=== PATIENT | female | born 1980 | race Caucasian/White ===

== ENCOUNTER 2021-03-18 08:59 | Emergency (ER) | payer MEDICAID, OTHER ==
[2021-03-18] MEDS ORDERED: Augmentin 875-125 Tablet PO ONE (09:51)
--- NOTE | 2021-03-18 09:51 | ERPHSYRPT ---
- History of Present Illness Time Seen by Provider: 03/18/21 09:20 Source: patient Exam Limitations: no limitations Patient Subjective Stated Complaint: dog bite to forehead last night Triage Nursing Assessment: pt to ED c/o dog bite last night. noted 2 cm laceration to R eyebrow that is not currently bleeding. pt reports she has cleaned with peroxide multiple times and currently is bandaged with abx ointment. rates 7/10 pain at rest. unknown tetanus status. Physician History: Patient is a 40-year-old female presents to our ED for evaluation of a dog bite to the right eyebrow area. Patient states she was visiting a neighbor whose dog bit her. The dog is domestic. Patient states she is not sure the dog's vaccination status. Incident occurred last night approximately 10 PM. Patient did not seek medical attention at that time for unclear reasons. Patient is otherwise healthy. Tetanus is not up-to-date. Patient treated the injured area with irrigation and application of antibiotic ointment. Patient otherwise feels well. Pain is well controlled. No headache. No blurred vision. No nausea or vomiting. No other injuries reported. Patient voices no other complaints concerns at this time. Timing/Duration: yesterday Severity: moderate Modifying Factors: Improves With: nothing Associated Symptoms: denies symptoms Allergies/Adverse Reactions: No Known Drug Allergies Allergy (Unverified 03/18/21 09:24) Home Medications: Venlafaxine HCl ER 75 mg [Effexor XR 75 MG] 150 mg PO DAILY 03/18/21 [History] clonazePAM [Clonazepam] 0.5 mg PO DAILY PRN PRN 03/18/21 [History] Hx Tetanus, Diphtheria Vaccination/Date Given: No (unknown) Hx Influenza Vaccination/Date Given: No Hx Pneumococcal Vaccination/Date Given: No Immunizations Up to Date: No Travel Risk - International Travel Have you traveled outside of the country in past 3 weeks: No - Coronavirus Screening Are you exhibiting any of the following symptoms?: No Close contact with a COVID-19 positive Pt in past 14-21 Days: No - Vaccine Status Have you recieved a Covid-19 vaccination: Yes 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[employer] - Vaccination Dates Date of 2cond Vaccination (if applicable): january - Review of Systems Constitutional: No Symptoms, No Fever, No Chills Eyes: No Symptoms Ears, Nose, & Throat: No Symptoms Respiratory: No Symptoms, No Cough, No Dyspnea Cardiac: No Symptoms, No Chest Pain, No Edema, No Syncope Abdominal/Gastrointestinal: No Symptoms, No Abdominal Pain, No Nausea, No Vomiting, No Diarrhea Genitourinary Symptoms: No Symptoms, No Dysuria Musculoskeletal: No Symptoms, No Back Pain, No Neck Pain Skin: No Symptoms, No Rash Neurological: No Symptoms, No Dizziness, No Focal Weakness, No Sensory Changes Psychological: No Symptoms Endocrine: No Symptoms Hematologic/Lymphatic: No Symptoms Immunological/Allergic: No Symptoms All Other Systems: Reviewed and Negative - Past Medical History Pertinent Past Medical History: Yes Psycho-Social History: Depression - Past Surgical History Past Surgical History: No - Social History Smoking Status: Light tobacco smoker Exposure to second hand smoke: No Drug Use: none Patient Lives Alone: No - Female History Hx Last Menstrual Period: 3 weeks ago Hx Now: No - Nursing Vital Signs Nursing Vital Signs: Initial Vital Signs Temperature 98.7 F 03/18/21 09:16 Pulse Rate 91 H 03/18/21 09:16 Respiratory Rate 16 03/18/21 09:16 Blood Pressure 176/112 03/18/21 09:16 O2 Sat by Pulse Oximetry 97 03/18/21 09:16 Pain Scale Pain Intensity 7 - Physical Exam General Appearance: no apparent distress, alert Eye Exam: PERRL/EOMI, eyes nml inspection, other (Dog bite laceration over the right eyebrow that is not amendable to laceration repair. No involvement of the adjacent globe.) Ears, Nose, Throat Exam: normal ENT inspection, TMs normal, pharynx normal, moist mucous membranes, other (There is a 3 cm well approximated laceration just above the right eyebrow with a 4 mm x 2 mm in depth volume of soft tissue traumatically avulsed secondary to a dog bite. The wound is 12 hours old.) Neck Exam: normal inspection, non-tender, supple, full range of motion Respiratory Exam: normal breath sounds, lungs clear, No respiratory distress Cardiovascular Exam: regular rate/rhythm, normal heart sounds, normal peripheral pulses Gastrointestinal/Abdomen Exam: soft, normal bowel sounds, No tenderness, No mass Back Exam: normal inspection, normal range of motion, No CVA tenderness, No vertebral tenderness Extremity Exam: normal inspection, normal range of motion, pelvis stable Neurologic Exam: alert, oriented x 3, cooperative, normal mood/affect, nml cerebellar function, nml station & gait, sensation nml, No motor deficits Skin Exam: normal color, warm, dry, No rash Lymphatic Exam: No adenopathy SpO2 Interpretation: normal SpO2: 97 O2 Delivery: Room Air - Course Nursing assessment & vital signs reviewed: Yes Ordered Tests: Medication Summary Discontinued Medications Generic Name Dose Route Start Last Admin Trade Name Jake PRN Reason Stop Dose Admin Acetaminophen 975 mg 03/18/21 09:54 Acetaminophen 325 Mg Tablet PO 03/18/21 09:55 STAT ONE Amoxicillin/Clavulanate Potassium 875 mg 03/18/21 09:51 Amox Tr/Potassium Clavulanate 875 Mg Tablet PO 03/18/21 09:52 STAT ONE Diphtheria/Tetanus/Acell Pertussis 0.5 ml 03/18/21 09:56 Tdap --Diph,Pertuss(Acell),Tet Vac/Pf 0.5 Ml Vial IM 03/18/21 09:57 .ONCE ONE - Progress Progress: improved Progress Note: Patient reassessed. Patient denies pain at this time. The wound was irrigated and dressed by our RN. Patient's tetanus was updated. After extensive discussion patient declined rabies vaccination. Patient received an oral dose of Augmentin in our ED. A prescription for the same was forwarded to patient's pharmacy. Patient received Tylenol for pain control. Patient was advised that she will have a considerable very obvious scar to the involved area. At this point the best course of action is to allow the wound to heal in the follow-up with plastic surgeon to remedy the resulting scar. Plan of care discussed with patient. Patient agrees to follow-up with her primary care doctor within 48 hours for reevaluation. Wound care instructions provided to patient. [id number] analgesics as needed. Please report completed. Patient voices no other complaints concerns at this time. Will discharge home. Portions of this note were created with voice recognition technology. There may be grammatical, spelling, punctuation or sound alike errors 03/18/21 10:08 Counseled pt/family regarding: diagnosis, need for follow-up, rad results - Departure Departure Disposition: Home Clinical Impression: Dog bite, Eyebrow laceration Condition: Stable Critical Care Time: No Referrals: WILMA WAITE [Primary Care Provider] - Additional Instructions: Discharge/Care Plan PAOLA WINTERS was seen on 03/18/21 in the Emergency Room. The patient was counseled regarding Diagnosis,Lab results, Imaging studies, need for follow up and when to return to the Emergency Room. Prescriptions given: Discharge Note I have spoken with the patient and/or caregivers. I have explained the patient's condition, diagnosis and treatment plan based on the information available to me at this time. I have answered the patient's and/or caregiver's questions and addressed any concerns. The patient and/or caregivers have as good understanding of the patient's diagnosis, condition and treatment plan as can be expected at this point. The vital signs have been stable. The patient's condition is stable and appropriate for discharge from the emergency department. The patient will pursue further outpatient evaluation with the primary care physician or other designated or consulting physician as outlined in the discharge instructions. The patient and/or caregivers are agreeable to this plan of care and follow-up instructions have been explained in detail. The patient and/or caregivers have received these instruction. The patient/and or caregivers are aware that any significant change in condition or worsening of symptoms should prompt an immediate return to this or the closest emergency department or call 911. Prescriptions: Amox Tr/Potass Clav. 875 mg [Augmentin 875-125 Tablet] 1 each PO BID 7 Days #14 tablet
[2021-03-18] MEDS ORDERED: TYLENOL 325 MG PO ONE (09:54)
[2021-03-18] MEDS ORDERED: Adacel Vial IM ONE (09:56)
[2021-03-18] MEDS ORDERED: Augmentin 875-125 Tablet ONE (10:03)
[2021-03-18] MEDS ORDERED: TYLENOL 325 MG ONE (10:03)
[2021-03-18] MEDS ORDERED: TENIVAC VIAL IM ONE (10:04)
[2021-03-18 10:17] VITALS: BP 154/97; PULSE 94; O2SAT 99
== END 2021-03-18 10:41 | disposition home or self-care (01) ==
LOC: ED 08:59
DX: S01.111A Laceration without foreign body of right eyelid and periocular area, initial encounter (principal)
CPT/HCPCS: 90471; 90714; 90715; 99283; A9270-GY

== ENCOUNTER 2022-12-23 20:32 | Emergency (ER) | payer MEDICAID, OTHER ==
[2022-12-23 20:45] VITALS: TEMP 98.7
--- NOTE | 2022-12-23 21:15 | ERPHSYRPT ---
- History of Present Illness Time Seen by Provider: 12/23/22 21:09 Source: patient Exam Limitations: no limitations Patient Subjective Stated Complaint: cut hand open on green wayne can lid Triage Nursing Assessment: pt ambulated into ER without diff, pt alert and oriented x4, pleasant and cooperative. Pt has laceration to left hand, in the crease of the hand where it bends. Laceration is 2.0 cm L x 0.2 cm W. Pt had dressing in place upon arrival, very minimal old blood on dressing. Physician History: laceration on left hand while opening on green wayne can lid Pt has laceration to left hand, in the crease of the hand where it bends. Laceration is 2.0 cm L x 0.2 cm W. Timing/Duration: today Associated Symptoms: denies symptoms Allergies/Adverse Reactions: No Known Drug Allergies Allergy (Verified 12/23/22 20:52) Home Medications: Venlafaxine HCl ER 75 mg [Effexor XR 75 MG] 150 mg PO DAILY 03/18/21 [History] clonazePAM [Clonazepam] 0.5 mg PO DAILY PRN PRN 03/18/21 [History] Lamotrigine [Lamotrigine ER] 150 mg PO DAILY 12/23/22 [History] Hx Tetanus, Diphtheria Vaccination/Date Given: Yes (may 25) Hx Influenza Vaccination/Date Given: No Hx Pneumococcal Vaccination/Date Given: No Immunizations Up to Date: No Travel Risk - International Travel Have you traveled outside of the country in past 3 weeks: No - Coronavirus Screening Are you exhibiting any of the following symptoms?: No Close contact with a COVID-19 positive Pt in past 14-21 Days: No - Vaccine Status Have you recieved a Covid-19 vaccination: Yes 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 - Review of Systems Constitutional: No Symptoms Eyes: No Symptoms Ears, Nose, & Throat: No Symptoms Respiratory: No Symptoms Cardiac: No Symptoms Abdominal/Gastrointestinal: No Symptoms Genitourinary Symptoms: No Symptoms Musculoskeletal: No Symptoms Skin: Other (laceration on left hand) Neurological: No Symptoms Psychological: No Symptoms Endocrine: No Symptoms Hematologic/Lymphatic: No Symptoms - Past Medical History Pertinent Past Medical History: Yes Psycho-Social History: Anxiety, Depression - Past Surgical History Past Surgical History: No - Social History Smoking Status: Current every day smoker Exposure to second hand smoke: Yes Drug Use: marijuana Patient Lives Alone: No - Female History Hx Now: No - Nursing Vital Signs Nursing Vital Signs: Initial Vital Signs Temperature 98.7 F 12/23/22 20:40 Pulse Rate 92 H 12/23/22 20:40 Respiratory Rate 16 12/23/22 20:40 Blood Pressure 179/108 12/23/22 20:40 O2 Sat by Pulse Oximetry 97 12/23/22 20:40 Pain Scale Pain Intensity 7 - Physical Exam General Appearance: no apparent distress Eye Exam: PERRL/EOMI Ears, Nose, Throat Exam: normal ENT inspection Neck Exam: normal inspection Respiratory Exam: normal breath sounds Cardiovascular Exam: regular rate/rhythm Extremity Exam: other (2x2 cms lasuperficial laceration on left hand, mcdonough area 1st and 2nd digit) Neurologic Exam: alert, oriented x 3 SpO2: 97 Procedures - Laceration/Wound Repair Left Volar Hand Time of Procedure: 21:00 Wound Location: Left, hand Wound Length (cm): 2 Wound's Depth, Shape: superficial, linear Wound Explored: clean Irrigated: Yes Hibiclens Prep: Yes Anesthesia: local, 1% lidocaine w/ Epi Volume Anesthetic (ccs): 3 Wound Debrided: minimal Wound Repaired With: sutures Suture Size/Type: 3-0, nylon Number of Sutures: 2 Layer Closure?: No Sterile Dressing Applied?: Yes Splint Applied?: No - Course Nursing assessment & vital signs reviewed: Yes - Progress Progress: improved Counseled pt/family regarding: need for follow-up (7 days for suture removal) Medical Desision Making - Diagnostic Testing Diagnostic test were ordered, analyzed, and reviewed by me: No - Risk of complications Minimal Risk: Minimal risk of morbidity - Departure Departure Disposition: Home Clinical Impression: Laceration of left hand without complication, excluding fingers Qualifiers: Encounter type: initial encounter Qualified Code(s): S61.412A - Laceration without foreign body of left hand, initial encounter Condition: Stable Critical Care Time: No Referrals: WILMA WAITE [Primary Care Provider] - Follow up/PCP as directed ANNIE SHERMAN MD [ACTIVE STAFF] - Follow up/PCP as directed Instructions: Laceration Repair With Stitches (DC), Wound Care (DC) Additional Instructions: Discharge/Care Plan PAOLA WINTERS was seen on 12/23/22 in the Emergency Room. The patient was counseled regarding Diagnosis,Lab results, Imaging studies, need for follow up and when to return to the Emergency Room. Prescriptions given: Discharge Note I have spoken with the patient and/or caregivers. I have explained the patient's condition, diagnosis and treatment plan based on the information available to me at this time. I have answered the patient's and/or caregiver's questions and addressed any concerns. The patient and/or caregivers have as good understanding of the patient's diagnosis, condition and treatment plan as can be expected at this point. The vital signs have been stable. The patient's condition is stable and appropriate for discharge from the emergency department. The patient will pursue further outpatient evaluation with the primary care physician or other designated or consulting physician as outlined in the discharge instructions. The patient and/or caregivers are agreeable to this plan of care and follow-up instructions have been explained in detail. The patient and/or caregivers have received these instruction. The patient/and or caregivers are aware that any significant change in condition or worsening of symptoms should prompt an immediate return to this or the closest emergency department or call 911. PAOLA WINTERS was seen on 12/23/22 n the Emergency Room. At that time you were treated for an emergent condition, during your visit Laboratory, Radiology and/or other procedures may have been ordered. It is very important that you follow-up with your Primary Care Physician WILMA WAITE within the next 24-48 hours to review your Emergency Room visit and the final results of testing that was ordered. Some test results such as Urine Cultures, Blood Cultures, and other cultures if ordered will not be finalized for 24-48 hours. If you do not have a Primary Care Provider please call the medical records department at [phone] ext [phone] to obtain a copy of your results or you may sign into our patient portal to obtain these results by visiting us @ [email or web address] and completing the following steps: 1. Click on the Patient Portal link 2. Click the Patient Self Enrollment Link to complete the enrollment form and entering your 3. Once the enrollment form is completed you will receive an email with a temporary ID and password at the email address you provided. 4. Next choose a user name and password. Your user name must be at least 4 characters long and your password must be at least 4 characters long. 5. Choose a security question from the list and provide your answer to the question. If you already have signed into the Health Portal you may access your Health Care Information 26/12 by the following steps: 1. Login to our website @ [email or web address] 2. Enter your original user name and password. FAQS The [facility] Health Portal is an online tool that contains your Lab Results, Radiology Reports, Visit History, Discharge Instructions and Health Summary Lab and Radiology Results will not be available for 72 hours on the portal. The Portal is a secure site, passwords are encryted and URLs are re-written so they cannot be copied and pasted. You and authorized family members are the only ones who can access your Portal. Also there is a timeout feature that protects your information if you leave the Portal page open. If you have technical difficulty please use the Contact Us link on the page this will allow you to submit any questions you have regarding the Portal or you may contact the Medical Record Department at [phone] ext [phone].
[2022-12-23 21:25] VITALS: BP 170/100; PULSE 84; RESP 18; O2SAT 95
== END 2022-12-23 21:27 | disposition home or self-care (01) ==
LOC: ED 20:32
DX: S61.412A Laceration without foreign body of left hand, initial encounter (principal); W26.8XXA Contact with other sharp object(s), not elsewhere classified, initial encounter; Y93.G1 Activity, food preparation and clean up; Z79.899 Other long term (current) drug therapy; Z72.0 Tobacco use
CPT/HCPCS: 12001; 99281